=== PATIENT | male | born 1950 | race Caucasian/White ===

== ENCOUNTER 2017-02-14 12:28 | Outpatient (CLI) | payer MEDICARE, OTHER ==
[2015-10-16 15:48] VITALS: O2SAT 96
== END 2017-02-14 12:29 | disposition home or self-care (01) | DRG 561 ==
LOC: CONVCARE 12:28
PROVIDERS: ATTEND Orthopaedic Surgery
DX: Z47.1 Aftercare following joint replacement surgery (principal); Z96.643 Presence of artificial hip joint, bilateral
CPT/HCPCS: 73502